=== PATIENT | female | born 1950 | race Asian ===

== ENCOUNTER 2024-06-08 19:43 | Inpatient (IN) | payer OTHER, SELFPAY ==
[2024-06-08] VITALS (8 sets, daily range): BP systolic 95–172; BP diastolic 59–100; BMI 35.3; BMI 34.8
[2024-06-08 15:25] LABS: Glucose - Point of Care 553 mg/dl (70-99)
[2024-06-08 15:49] LABS: % Basophils 0.5 % (0-2); % Immature Granulocytes 0.4 % (0-0.5); % Lymphocytes 24.8 % (20.5-51.1); % Monocytes 6.5 % (1.7-9.3); % Neutrophils 65.8 % (42.2-75.2); Absolute Basophils 0.1 10^3/uL (0-0.2); Absolute Eosinophils 0.2 10^3/uL (0-0.7); Absolute Lymphocytes 2.3 10^3/uL (1.2-3.4); Absolute Monocytes 0.6 10^3/uL (0.1-0.6); Absolute Neutrophils 6.1 10^3/uL (1.4-6.5); Hemoglobin 10.2 g/dL (12.0-16.0); Mean Corpuscular Hgb 28.3 pg (27.0-31.0); Mean Corpuscular Volume 83.1 fL (81.0-99.0); Mean Platelet Volume 9.8 fL (7.4-10.4); Nucleated Red Blood Cells % 0 %; Platelet Count 318 10^3/uL (130-400); Red Blood Cell Count 3.61 10^6/uL (4.20-5.40); Red Cell Dist. Width 12.4 % (11.5-14.5); White Blood Cell Count 9.3 10^3/uL (4.8-10.8)
[2024-06-08 16:06] LABS: ALT (SGPT) 28 U/L (0-35); AST (SGOT) 29 U/L (14-36); Albumin 4.5 g/dl (3.5-5.0); Alkaline Phosphatase 89 U/L (38-126); Blood Urea Nitrogen 37 mg/dl (7-17); Calcium 9.7 mg/dl (8.4-10.2); Carbon Dioxide 28 mmol/L (22-30); Chloride 96 mmol/L (98-107); Estimated Creatinine Clearance 29 ml/min; Glucose 612 mg/dl (70-99); INR 1.01; PT 13.6 Sec (11.4-14.6); Potassium 4.4 mmol/L (3.5-5.1); Sodium 137 mmol/L (135-145); Total Bilirubin 0.4 mg/dl (0.2-1.3); Total Protein 7.1 g/dl (6.3-8.2); eGFR 33.42
[2024-06-08] MEDS: ATIVAN 1 MG IV (16:06)
[2024-06-08 16:07] LABS: APTT 32.8 Sec (23.4-35.0)
--- NOTE | 2024-06-08 16:10 | PTCARENOTE ---
RN in room with pt and family. Pts right arm and right eye start twitching. Pts family state this is what happens to her. Pt then looks at RN. Pt unable to communicate during episode. Episode lasted about 30 seconds. Ativan 1mg IV given. See
MAR. Dr. Lazaro Bradshaw made aware and in room to assess pt. Will continue to monitor.
[2024-06-08 16:14] LABS: Troponin I < 0.012 ng/ml
[2024-06-08] MEDS: NSS 500 IV ×2 (16:16→19:11)
[2024-06-08] MEDS: NOVOLIN R 8 UNITS IV (16:17)
[2024-06-08 16:35] LABS: B-Hydroxybutyrate 0.18 mmol/L (0.02-0.27)
[2024-06-08] MEDS: NOVOLIN R INSULIN INFUSION 100 IV (16:39)
[2024-06-08 18:04] LABS: Glucose - Point of Care 469 mg/dl (70-99)
--- NOTE | 2024-06-08 18:11 | ED.GENMED ---
History of Present Illness
General
Chief Complaint: Seizure
Source: patient
Exam Limitations: none
Time Seen by Provider: 06/08/24 15:51
Nursing documentation reviewed up to this point in time: agreed with
History of Present Illness
History of Present Illness:
Patient with history insulin-dependent diabetes, presents to ED secondary to multiple episodes of involuntary facial and right upper arm twitching at home, without loss of consciousness. Each episode lasted few minutes at a time. Of note, patient
had 1 similar episode approxi-10 days ago. Since then, patient has not had any similar symptoms until today. Patient denies headache. Denies dizziness. Denies difficulty with speech. Denies difficulty with ambulation. Denies loss of sensation
or weakness. Denies previous history of similar symptoms. Denies recent change in medications or diet. However, patient does state that her blood sugar has been high at home.
Review of Systems
Review of Systems
Allergies reviewed?: Yes
All Other Systems: ROS reviewed and negative except as documented in HPI and ROS
Constitutional: Reports no symptoms; Denies fever
Respiratory: Reports no symptoms
Cardiac: Reports no symptoms
ABD/GI: Reports no symptoms; Denies vomiting
Musculoskeletal: Reports no symptoms
Skin: Reports no symptoms
Neurological: Reports other (involuntary twitching)
Phy Exam
Physical Exam
Physical Exam:
Physical Exam
General: mild distress, not acutely ill. afebrile
Head: nc/at. eomi
Neck: supple. normal range of motion.
Heart: s1/s2 regular rate and rhythm
Lungs: no acute respiratory distress. clear bilaterally
Abdomen: normal bowel sounds. not tender.
Neuro: alert and oriented x 3. no focal neurological deficits. normal speech
Skin: no rash
Psychiatric: well kept. interactive and cooperative
Extremities: no edema. no calf tenderness.
Course
Orders/Labs/Results
Orders:
Orders
06/08/24 Lunch
NPO
Allow oral meds: Yes
Allow clear liquids: No
06/08/24 15:19
Electrocardiogram (*1) Urgent
Reason for Study: TIA/Stroke
EKG- Treatment ONCE
06/08/24 15:37
B-Hydroxybutyrate Urgent
Complete Blood Count/With Diff Urgent
Comprehensive Metabolic Panel Urgent
Glycohemoglobin (HgbA1c) Urgent
PTT Urgent
Prothrombin Time Urgent
Serum Osmolality Urgent
Comment: ADD ON
Troponin I Urgent
06/08/24 15:48
Lorazepam [Ativan] 2 mg .ROUTE .STK-MED ONE
06/08/24 16:05
Lorazepam [Ativan] 1 mg IV NOW STA
06/08/24 16:09
Add On- LAB Urgent
Tests Added?: Beta-hydroxybutyrate, hemoglobin A1c
0.9% Sodium Chloride 500 ml [Nss] 500 ml IV BOLUS
Insulin Human Regular [Novolin R] 8 units IV NOW STA
Reg Insulin 100 Units/100 ml [Novolin R Insulin Infusion] 100 units in 100 ml IV NOW
06/08/24 16:10
CT Head W/o Iv Contrast Urgent
Comment:
Reason For Exam: right facial numbness w RUE twitching
06/08/24 16:30
Reg Insulin 100 Units/100 ml [Novolin R Insulin Infusion] 100 units in 100 ml IV NOW
06/08/24 17:46
Levetiracetam Injectable [Keppra] 1,000 mg IV NOW STA
06/08/24 18:12
Glucose Stat
Venous Blood Gas Urgent
%Oxygen/Room Air: 98
06/08/24 18:46
Add On- LAB Routine
Tests Added?: serum osmolality
06/08/24 18:50
0.9% Sodium Chloride 1000 ml [Nss] 1,000 ml IV BOLUS
06/08/24 19:03
0.9% Sodium Chloride 500 ml [Nss] 500 ml IV BOLUS
06/08/24 19:11
Admit/Transfer Patient As Directed
Co-Sign Provider:
Level of Care: Inpatient admission
Assign to:: IMU- Intermediate Care
Physician / Group: Merced Hyde
Diagnosis: Hyperosmolar Hyperglycemic state
Reason for Hospitalization: Hyperosmolar Hyperglycemic state
Expected length of stay greater than two midnights?: Yes
ELOS- Estimated Length of Stay in days: 3
I certify the patient meets the requirements for IP care: Yes
PRN Pain Medication Management As Directed
May give lesser potent ordered pain med per pt: Yes
preference::
Protocol:: Medication orders for pain may be administered in a
manner that supports deferring to patient preference
when the pt is:
- Requesting an ordered lesser potent pain medication.
Least to most potent pain medications are defined
as: acetaminophen < NSAID < tramadol < opioids
(morphine, oxycodone, hydromorphone).
- Requesting a lesser dose of the same medication IF
ORDERED.
- Requesting a less intrusive route of administration
if both routes are prescribed by the provider (PO <
IV).
06/08/24 19:14
Code Status As Directed
Resuscitation Status: Full Code
06/08/24 19:48
BMP [Basic Metabolic Panel] Urgent
06/08/24 20:19
Heparin 5,000 units SC Q12
KCl 20 Meq/0.9%Sodchl 1000 ml [NSS with KCL 20 MEQ] 20 meq in 1,000 ml IV 100 mls/hr
Reg Insulin 100 Units/100 ml [Novolin R Insulin Infusion] 100 units in 100 ml IV PER PROTOCOL
Currently infusing. Continue current dose and titrate:: Yes
06/08/24 20:19
Diabetes Education Consult Routine
Reason for Consult: Monitor Instruction
Newly Diagnosed?: No
Diabetes Management by Nurse Practitioner Routine
Consulting Provider: Florinda Pabon
Was provider already notified?: Yes
Activity As Directed
Activity Level: As Tolerated
Bedside Glucose Monitoring As Directed
Frequency: Q1H
Intake/ Output As Directed
Frequency: Per unit guidelines
Notify MD As Directed
Notify physician if: Nurse to contact provider when glucose reaches 250 to obtain orders for D5 0.[address] Non Medication Order As Directed
Physician Order: goal decrease on glucose 90-120 per hour
Above order entered?: Yes
Nursing to Place Non Medication Order As Directed
Physician Order: please TT me (pre-MN) then overnight PROGRAM/MUSIC DIRECTOR BMP results
Above order entered?: Yes
Vital Signs As Directed
Frequency: Per unit guidelines
Weight As Directed
Frequency: Daily
DX Deep Vein Thrombosis Video Routine
06/09/24 04:19
Complete Blood Count/No Diff IN AM
06/09/24 06:00
Echo 2D MMode Color/Doppler IN AM
Reason for Study: heart failure, unknown EF
06/09/24 08:00
Levetiracetam [Keppra] 500 mg PO BID
Abnormal Lab Results
06/08/24 06/08/24 06/08/24
15:23 15:37 18:02
RBC 3.61 L 10^6/uL
(4.20-5.40)
Hgb 10.2 L g/dL
(12.0-16.0)
Hct 30.0 L %
(37.0-47.0)
VBG pCO2
VBG HCO3
Chloride 96 L mmol/L
(98-107)
BUN 37 H mg/dl
(7-17)
Creatinine 1.6 H mg/dL
(0.6-1.0)
Glucose 612 H* mg/dl
(70-99)
Hemoglobin A1c 10.5 H %
(4.0-5.6)
Serum Osmolality 322 H mOsm/kg
(275-300)
POC Glucose 553 H* mg/dl 469 H* mg/dl
(70-99) (70-99)
06/08/24
18:12
RBC
Hgb
Hct
VBG pCO2 55 H mmHg
(35-48)
VBG HCO3 31.8 H mmol/L
(22-27)
Chloride
BUN
Creatinine
Glucose 465 H* mg/dl
(70-99)
Hemoglobin A1c
Serum Osmolality
POC Glucose
06/08/24 15:37
06/08/24 18:12
Vital Signs
Initial and Last Documented VS:
Initial Vital Signs
Temp Pulse Resp BP Pulse Ox
98.6 F 106 22 172/100 98
06/08/24 15:10 06/08/24 15:10 06/08/24 15:10 06/08/24 15:10 06/08/24 15:10
Last Documented Vital Signs
Temp Pulse Resp BP Pulse Ox
97.5 F 77 23 147/60 96
06/09/24 16:12 06/09/24 18:00 06/09/24 18:00 06/09/24 18:00 06/09/24 18:00
MDM/Problems Addressed
MDM/Problems Addressed:
During observation ED, patient with multiple episodes of involuntary movements, with resolutions spontaneously.
CT head: No acute findings. Blood work remarkable for hyperglycemia without anion gap.
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 However, difficulty with potential structural abnormalities versus seizure. As such, does recommend admit to the hospital
on insulin drip along with Keppra, as well as MRI brain as in-patient.
*Critical Care Note
Total Time (30-74mins, 75-104mins- exclusive of procedures): Not Applicable
ED Attending Note
-
Portions of this chart may have been created with voice recognition software.� Occasional wrong word or��sound alike� substitutions may have occurred due to the inherent limitations of voice recognition software.
Discharge Plan
Departure
Patient Disposition: Admit
Date of Disposition: 06/08/24
Time of Disposition: 18:21
Admit to: Telemetry
Presentation/result/management discussed w/ accepting MD/DO: Hospitalist
Discharge Problem:
Hyperglycemia, INVOLUNTARY TREMOR
Interventions
Interventions:
*Risk Screen - Suicide Last Done: 06/08/24 15:10
*General Assessment Last Done: 06/08/24 15:10
*Neglect/Abuse Screening Last Done: 06/08/24 15:10
*ED- Fall Risk Assessment Last Done: 06/08/24 15:48
*ED COVID-19 Vaccine History Last Done: 06/08/24 15:48
*Nursing Disposition Last Done: 06/08/24 20:13
ED- Cardiac Assessment Last Done: 06/08/24 15:48
ED- Neurological Assessment Last Done: 06/08/24 15:48
ED- Pulmonary Assessment Last Done: 06/08/24 15:48
Discharge Date and Time
Discharge Date/Time: 06/08/24 20:14
[2024-06-08 18:20] LABS: Venous Blood Gas B.E. 5.4 mmol/L (-4 to +4); Venous Blood Gas HCO3 31.8 mmol/L (22-27); Venous Blood Gas O2 Sat % 51.5 %; Venous Blood Gas pCO2 55 mmHg (35-48); Venous Blood Gas pH 7.37 (7.32-7.43); Venous Blood Gas pO2 33 mmHg (30-50)
[2024-06-08] MEDS: KEPPRA 1000 MG IV (18:25)
--- NOTE | 2024-06-08 18:35 | HPS.HSE ---
Family Physician
-
Family Physician: * NONE
Chief Complaint
-
tremors
History of Present Illness
Ms. Irma García is a 74 yo woman with hx IDDM presents to the ER with multiple episodes of involuntary facial and right upper arm twitching. History obtained by grandson translating. First noticed episode 10 days ago where patient had
twitching of right arm and right side of face. This recurred multiple times today and so she was brought to the ER. Blood glucose levels checked at home in 500's. She cannot talk during these episodes but able to nod that she is okay. No prior
history of similar episodes or seizures. She takes Insulin 70/30 twice a day. She states she only checks her sugar once a week and it is usually in the 200's.
Patient lives in [facility] and is here visiting family. She is on a combination pill of aspirin/plavix. She denies recent heart attack or stent. She has history of kidney disease per grandson.
No recent fevers/chills. No cough/congestion. No chest pain. No nausea/vomiting/diarrhea. No LE swelling. She reports urinating normally.
Medical History
Past Medical History
Past Medical History: Reports IDDM
Past Surgical History: Reports None
Social History
Tobacco: Non-smoker
Alcohol: None
Family History
Family History: Not pertinent
Allergies / Home Medications
Allergies reflects when Allergies were last updated in [facility].
Home Medications with original date entered in [employer] [facility]
Allergy/Medication List:
*awaiting med rec
Review of Systems
-
History Source: Patient
A 12 point ROS was completed and negative except as noted: Yes
Physical Exam
Vital Signs
Vital Signs
Temp Pulse Resp BP Pulse Ox
98.6 F 89 18 128/60 100
06/08/24 15:10 06/08/24 18:15 06/08/24 18:15 06/08/24 18:15 06/08/24 18:15
Physical Exam
General: No Apparent Distress
HEENT: PERRLA
Respiratory: Clear; No Wheezes
Cardiac: S1/S2, Regular Rhythm and JVD
GI: Soft and Non Tender
Musculoskeletal: No Edema
Neuro: AO x 3 and Other (SILVIA, EOMI, no current facial asymmetry, 5/5 strength upper and lower extremities )
Psych: Calm
Laboratory Results
-
06/08/24 15:37
Laboratory Results
PT 13.6 Sec (11.4-14.6) 06/08/24 15:37
INR 1.01 06/08/24 15:37
APTT 32.8 Sec (23.4-35.0) 06/08/24 15:37
Total Bilirubin 0.4 mg/dl (0.2-1.3) 06/08/24 15:37
AST 29 U/L (14-36) 06/08/24 15:37
ALT 28 U/L (0-35) 06/08/24 15:37
Alkaline Phosphatase 89 U/L (38-126) 06/08/24 15:37
Troponin I < 0.012 ng/ml 06/08/24 15:37
Data Reviewed
-
Diagnostic Radiology: Report Reviewed by me
Lab Data: Labs Reviewed by me
Impression/Plan
-
Ms. Irma García is a 74 yo woman with hx IDDM presents to the ER with multiple episodes of involuntary facial and right upper arm twitching. She is found to be hyperglycemic to 612; not acidotic.
Triage VS: T 98.6, P 106, RR 22, BP 172/100, SpO2 98%
LABS: WBC 9.3, Hg 10.2, PLT 318, Na 137 (corrected = 145), K+ 4.4, Cl 96, BUN 37, Cr 1.6, Glucose 612 --> 465, liver enzymes WNL, Trop < 0.012
Serum osmolality = 321
B-Hydroxybutyrate 0.[address]
IMPRESSION:
No acute intracranial abnormality noted.
MAR: IV Ativan, IV regular insulin 8 units and initiation of gtt, IV Keppra
Hyperglycemia
IDDM
Hyperosmolar Hyperglycemic State
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
-admit to IMU
-will give additional 500cc now. Patient has JVP on exam and is on Torsemide, need to be careful with fluid resuscitation
-continue IV Insulin gtt with goal decrease on glucose 90-120 per hour
-trend BMP and plasma osmolality with goal drop in POsm 3-8 mOsm/kg per hour
-NS + K20 @ 100 (given concern for hypervolemia)
-NPO
-DM SKILLED NURSING PROFESSIONAL consults
-can transition to subQ insulin when glucose < 250; Posm < 300
HF, Unknown EF
-Patient is on Torsemide 20mg PO QD at home
-will obtain echo here
-monitor volume status closely
KAMLA versus CKD
-monitor closely with fluids
*Awaiting med rec
DVT PPx hep subQ
FULL CODE
Total Critical Care Time 50 minutes. I was immediately available to the patient and staff. I personally examined, reviewed labs, diagnostic images/reports, interpretations, treatment plans, discussed patient care with other providers and family
or caregivers (if patient is unable to make decisions), entered orders as appropriate and documented the medical record.
[2024-06-08 18:37] LABS: Glucose 465 mg/dl (70-99)
[2024-06-08 19:21] LABS: Osmolality Serum 322 mOsm/kg (275-300)
[2024-06-08 20:21] LABS: Blood Urea Nitrogen 34 mg/dl (7-17); Calcium 8.7 mg/dl (8.4-10.2); Carbon Dioxide 30 mmol/L (22-30); Chloride 104 mmol/L (98-107); Estimated Creatinine Clearance 33 ml/min; Glucose 327 mg/dl (70-99); Potassium 3.8 mmol/L (3.5-5.1); Sodium 141 mmol/L (135-145); eGFR 39.23
[2024-06-08 20:32] LABS: Glucose - Point of Care 306 mg/dl (70-99)
[2024-06-08] MEDS: NSS with KCL 20 MEQ 1000 IV (21:11)
[2024-06-08] MEDS: KCL 20 MEQ PO ×2 (21:12→23:27)
[2024-06-08] MEDS: SINGULAIR 10 MG PO (21:12)
[2024-06-08] MEDS: HEPARIN 5000 UNITS SC (21:12)
[2024-06-08] MEDS: PROTONIX 40 MG PO (21:12)
[2024-06-08 21:32] LABS: Glucose - Point of Care 216 mg/dl (70-99)
[2024-06-08] MEDS: D5/0.45%NSS with KCL 20 MEQ 1000 IV (21:48)
[2024-06-08 22:18] LABS: Glucose - Point of Care 184 mg/dl (70-99)
[2024-06-08 22:29] LABS: Osmolality Serum 308 mOsm/kg (275-300)
[2024-06-08 22:34] LABS: Blood Urea Nitrogen 33 mg/dl (7-17); Calcium 9.4 mg/dl (8.4-10.2); Carbon Dioxide 32 mmol/L (22-30); Chloride 103 mmol/L (98-107); Estimated Creatinine Clearance 31 ml/min; Glucose 174 mg/dl (70-99); Potassium 3.6 mmol/L (3.5-5.1); Sodium 143 mmol/L (135-145); eGFR 36.12
--- NOTE | 2024-06-08 22:52 | W.PN.UPDATE ---
Update Note
Progress Note Update
Glucose now < 175; serum osmol remains elevated at 308
with drop in Glucose will stop insulin gtt and transition to subQ. She usually takes 30 units 70/30 in evening; will order 20 units NPH now with aspart 5 pre-meals
F/U ETHNOARCHAEOLOGY PROFESSOR DM recs tomorrow
Patient is sound asleep so will not be eating
continue D5 1/2 NS and stop based on follow up glucose levels (goal is mid 200's)
[2024-06-08] MEDS: HUMULIN N KWIKPEN 20 UNITS SC (23:27)
[2024-06-08 23:44] LABS: Glucose - Point of Care 176 mg/dl (70-99)
[2024-06-09] VITALS (10 sets, daily range): BP systolic 118–150; BP diastolic 54–78; BMI 34.6
--- NOTE | 2024-06-09 02:29 | PTCARENOTE ---
Addendum entered by Sarah Caro RN 06/09/24 02:38:
Accucheck 216 @21:15. Provider notified via tiger text. Orders received for D5 0.45% NaCl with KCl 20meq @100ml/hr. IVF started. Accucheck 184 at 22:10. BMP resulted at 22:35. K 3.6. Provider notified. Insulin gtt dc @ 22:50 per provider order.
Orders received for NPH. Follow up accucheck done@ 23:27, 176. NPH insulin given as soon as insulin pen was tubed up from pharmacy, @23:27. Labs ordered for the am. Orders to continue IVF through the night.
Original Note:
Received pt from ED at 20:10. Insulin gtt initially at 8.2ml/hr. Fingerstick upon arrival 306. Insulin gtt decreased to 5ml/hr per protocol. Pt aaox3, does not speak namibian, grandson in room to assist with translation and admission data. Assessment
done upon arrival, labs drawn as ordered for insulin gtt protocol. Q1 accucheck. Q2 BMP. VSS. Grandson to stay overnight with patient. Care ongoing.
[2024-06-09 04:42] LABS: Hematocrit 30.5 % (37.0-47.0); Hemoglobin 10.1 g/dL (12.0-16.0); Mean Corp Hgb Conc. 33.1 g/dL (33.0-37.0); Mean Corpuscular Hgb 27.7 pg (27.0-31.0); Mean Corpuscular Volume 83.8 fL (81.0-99.0); Mean Platelet Volume 9.6 fL (7.4-10.4); Platelet Count 273 10^3/uL (130-400); Red Blood Cell Count 3.64 10^6/uL (4.20-5.40); Red Cell Dist. Width 12.4 % (11.5-14.5); White Blood Cell Count 9.3 10^3/uL (4.8-10.8)
[2024-06-09 04:54] LABS: Magnesium 2.2 mg/dl (1.6-2.3); Phosphorus 4.5 mg/dl (2.5-4.5)
[2024-06-09 05:00] LABS: Blood Urea Nitrogen 31 mg/dl (7-17); Calcium 9.2 mg/dl (8.4-10.2); Carbon Dioxide 29 mmol/L (22-30); Chloride 106 mmol/L (98-107); Estimated Creatinine Clearance 31 ml/min; Glucose 210 mg/dl (70-99); Potassium 4.6 mmol/L (3.5-5.1); Sodium 144 mmol/L (135-145); eGFR 36.12
--- NOTE | 2024-06-09 05:51 | PTCARENOTE ---
D5 0.45% NaCl stopped per provider order. K 4.6 Glucose 210
[2024-06-09 06:05] LABS: Osmolality Serum 310 mOsm/kg (275-300)
[2024-06-09] MEDS: PLAVIX 75 MG PO (08:29)
[2024-06-09] MEDS: KEPPRA 500 MG PO (08:29)
[2024-06-09] MEDS: SODIUM BICARBONATE 325 MG PO ×2 (08:30→20:35)
[2024-06-09] MEDS: ASPIR LOW (ENTERIC COATED) 81 MG PO (08:30)
[2024-06-09] MEDS: HEPARIN 5000 UNITS SC ×2 (08:30→20:35)
[2024-06-09] MEDS: CRESTOR 10 MG PO (08:30)
[2024-06-09 08:36] LABS: Glucose - Point of Care 172 mg/dl (70-99)
--- NOTE | 2024-06-09 08:45 | PN.DE.MGMTRT ---
Insulin Management
- -
06/09/2024: Diabetes Management Consult
74 year old female who lives in [place] and is here visiting family. PMH: IDDM. Patient presented to the ER with multiple episodes of involuntary facial and right upper arm twitching. First noticed episode 10 days ago where she was twitching of right
arm and right side of face, this recurred multiple times morning of admission. They checked her blood glucose and that it was > 500, so they brought her to the ER.
Pt is awake, alert, oriented, resting in bed, offers no complaints, able to discuss diabetes out patient regimen, family at bedside
Grand dtr at bedside, reports that pt checks her blood sugar once a week and that her average blood sugar is 230-250. She takes insulin twice a day via insulin vial and injection which she self administers around her umbilical area. Upon exam, pt is
noted for lipoatrophy and lipohypertrophy.
She has a vial at bedside that she has been using with insulin. Family at bedside state that pt has been using the same insulin vial for over 2 months and that she was not aware to discard the vial 31 days after opening it. She has always
used the insulin in the vial until it is all used up, NOT when it's 31 days after opening it.
Blood sugar on admission was 612, A1C 10.5%, Cr 1.5, eGFR 36.12
Pt was briefly managed on HHNK Protocol and was transitioned off to SQ insulin-NPH 20 units BID
Her HS blood sugar was 176, FBG was 210 V, 172 POC this AM.
Will increase NPH dose to 30 units BID. Cont moderate corrective insulin with meals.
Pt is only 5 ft, will change diet from 2000 glenda to 1600 glenda.
Diabetes Nurse Educator to see pt today and reinforce education on insulin use and glucose monitoring at home.
Diabetes History
- -
Type of Diabetes: 2 requiring insulin
Pre-Admission Diabetes Regimen
06/08/24 06/08/24 06/08/24
15:37 19:48 21:00
Creatinine 1.6 H 1.4 H Cancelled
06/08/24 06/08/24 06/09/24
22:06 23:00 04:19
Creatinine 1.5 H Cancelled 1.5 H
Insulin Pump Settings
IP Diabetes Regimen
06/08/24 06/08/24 06/08/24
15:23 15:37 18:02
Glucose 612 H*
POC Glucose 553 H* 469 H*
06/08/24 06/08/24 06/08/24
18:12 19:48 20:19
Glucose 465 H* 327 H
POC Glucose 306 H
06/08/24 06/08/24 06/08/24
21:00 21:20 22:06
Glucose Cancelled 174 H
POC Glucose 216 H
06/08/24 06/08/24 06/08/24
22:07 23:00 23:31
Glucose Cancelled
POC Glucose 184 H 176 H
06/09/24 06/09/24
04:19 08:25
Glucose 210 H
POC Glucose 172 H
Patient Education
[2024-06-09] MEDS: NOVOLOG FLEXPEN-LOW RESISTANCE 1 UNITS SC ×2 (09:07→13:31)
[2024-06-09] MEDS: NOVOLOG FLEXPEN 5 UNITS SC ×3 (09:07→17:05)
[2024-06-09] MEDS: HUMULIN N KWIKPEN 20 UNITS SC (09:08)
[2024-06-09 09:40] LABS: Glycohemoglobin (HgbA1c) 10.5 % (4.0-5.6)
--- NOTE | 2024-06-09 13:03 | CON.NEURO ---
Neuro Assessment/Plan
Assessment
simple partial seizures, probably provoked in the setting of hyperglycemia
Head CT, imgs reviewed, chronic left basal ganglia infarct
Plan
brain MRI without contrast
routine EEG
no rx
Consultation
Order
Date of Consultation: 06/09/24
Requesting Provider: Alexis Dodge
Reason for Consult: tremors
Subjective/Objective
Subjective Data
Date of Service: June 09, 2024
from h&p:
Ms. Irma García is a 74 yo woman with hx IDDM presents to the ER with multiple episodes of involuntary facial and right upper arm twitching. History obtained by grandson danielle. First noticed episode 10 days ago where patient had
twitching of right arm and right side of face. This recurred multiple times today and so she was brought to the ER. Blood glucose levels checked at home in 500's. She cannot talk during these episodes but able to nod that she is okay. No prior
history of similar episodes or seizures. She takes Insulin 70/30 twice a day. She states she only checks her sugar once a week and it is usually in the 200's.
Patient lives in [facility] and is here visiting family. She is on a combination pill of aspirin/plavix. She denies recent heart attack or stent. She has history of kidney disease per grandson.
No recent fevers/chills. No cough/congestion. No chest pain. No nausea/vomiting/diarrhea. No LE swelling. She reports urinating normally.
today she reports symptoms are resolved, last episode ~4:30 pm yesterday
Objective Data
Vital Signs
Temp Pulse Resp BP Pulse Ox
36.5 C 68 17 134/63 97
06/09/24 07:27 06/09/24 10:00 06/09/24 10:00 06/09/24 10:00 06/09/24 10:00
Lab Results
06/09/24 04:19
06/09/24 04:19
PT 13.6 Sec (11.4-14.6) 06/08/24 15:37
INR 1.01 06/08/24 15:37
APTT 32.8 Sec (23.4-35.0) 06/08/24 15:37
Sodium 144 mmol/L (135-145) 06/09/24 04:19
Potassium 4.6 mmol/L (3.5-5.1) D 06/09/24 04:19
BUN 31 mg/dl (7-17) H 06/09/24 04:19
Glucose 210 mg/dl (70-99) H 06/09/24 04:19
Calcium 9.2 mg/dl (8.4-10.2) 06/09/24 04:19
Phosphorus 4.5 mg/dl (2.5-4.5) 06/09/24 04:19
Patient Allergies
No Known Allergies Allergy (Unverified 06/08/24 15:10)
Physical Exam
-
awake and alert, speech clear
face symmetric
moving all extremities antigravity
Medications
-
Active Medications
Generic Name Dose Route Start Last Admin
Trade Name Freq PRN Reason Stop Dose Admin
Aspirin 81 mg 06/09/24 08:00 06/09/24 08:30
Aspirin 81 Mg (Enteric Coated) Tablet PO 07/07/24 07:59 81 mg
DAILY KELLY Administration
Clopidogrel Bisulfate 75 mg 06/09/24 08:00 06/09/24 08:29
Clopidogrel 75 Mg Tablet PO 07/07/24 07:59 75 mg
DAILY KELLY Administration
Dextrose 12.5 grams 06/08/24 22:47
Dextrose 50% (0.5 Grams/Ml) 50 Ml Syringe IV 07/06/24 22:46
[id number] PRN
hypoglycemia
Protocol
Glucagon 1 mg 06/08/24 22:47
Glucagon 1 Mg Vial IM 07/06/24 22:46
PRN PRN
hypoglycemia
Protocol
Heparin Sodium 5,000 units 06/08/24 20:19 06/09/24 08:30
Heparin 5,000 Units/Ml 1 Ml Vial SC 07/06/24 20:18 5,000 units
Q12 KELLY Administration
Dextrose/Sodium Chloride 1,000 mls @ 80 mls/hr 06/09/24 06:00 06/09/24 06:20
D5/0.45%Nacl IV Not Given
[id number] KELLY
Insulin Aspart 0 units 06/09/24 07:30 06/09/24 09:07
Insulin Aspart Low Resistance 300 Units/3 Ml Pen.Injctr SC 07/07/24 07:29 1 units
AC KELLY Administration
Protocol
Insulin Aspart 5 units 06/09/24 07:30 06/09/24 09:07
Insulin Aspart (100 Units/Ml) 3 Ml Flexpen SC 07/07/24 07:29 5 units
AC KELLY Administration
Insulin Human NPH 20 units 06/09/24 20:00
Insulin Nph (100 Units/Ml) 3 Ml Kwikpen SC 07/07/24 19:59
Q12 KELLY
Levetiracetam 500 mg 06/09/24 08:00 06/09/24 08:29
Levetiracetam 500 Mg Regular Release Tablet PO 07/07/24 07:59 500 mg
BID KELLY Administration
Montelukast Sodium 10 mg 06/08/24 22:00 06/08/24 21:12
Montelukast Sodium 10 Mg Tablet PO 07/06/24 21:59 10 mg
HS KELLY Administration
Pantoprazole Sodium 40 mg 06/09/24 18:00
Pantoprazole 40 Mg Delayed Release Tablet PO 07/07/24 17:59
QPM KELLY
Rosuvastatin Calcium 10 mg 06/09/24 08:00 06/09/24 08:30
Rosuvastatin (Crestor) 10 Mg Tablet PO 07/07/24 07:59 10 mg
DAILY KELLY Administration
Sodium Bicarbonate 325 mg 06/09/24 08:00 06/09/24 08:30
Sodium Bicarbonate 650 Mg Tablet PO 07/07/24 07:59 325 mg
BID KELLY Administration
Sodium Chloride 0 flush 06/08/24 21:00
Sodium Chloride 0.9% (Flush) Syringe IV 07/06/24 20:59
PER PROTOCOL KELLY
Home Medications
�Medication �Instructions �Recorded
Fozo Red Xt 1 tab PO DAILY Supplement 06/08/24
Mycal Xt 1 tab PO HS 06/08/24
Pantomore Dsr 1 tab PO QPM 06/08/24
acetaminophen 500 mg tablet 500 mg PO DAILYPRN PRN mild pain 06/08/24
aspirin 81 mg tablet,delayed 75 mg PO DAILY Blood Clot 06/08/24
release Prevention/Tx
clopidogrel 75 mg tablet 75 mg PO DAILY Blood Clot 06/08/24
Prevention/Tx
enalapril maleate 20 mg tablet 20 mg PO DAILY Blood Pressure 06/08/24
insulin human U-100 NPH-regulr 30 unit SC QPM Diabetes 06/08/24
70-30 mix 100 unit/mL subcutaneous
susp (Humulin 70/30 U-100 Insulin)
insulin human U-100 NPH-regulr 50 unit SC NOON Diabetes 06/08/24
70-30 mix 100 unit/mL subcutaneous
susp (Humulin 70/30 U-100 Insulin)
levocetirizine 5 mg tablet 5 mg PO HS Allergies 06/08/24
montelukast 10 mg tablet 10 mg PO HS 06/08/24
rosuvastatin 10 mg tablet 10 mg PO DAILY 06/08/24
sodium bicarbonate 650 mg tablet 500 mg PO BID 06/08/24
torsemide 20 mg tablet 20 mg PO BID 06/08/24
--- NOTE | 2024-06-09 13:08 | PTCARENOTE ---
06/09/2024 DIABETES EDUCATION
I met with Ms. García and her granddaughter, she understands some Kazakh and granddaughter assisted with translation.
She takes insulin 70/30 with vial and syringe.
Patient declined meter instruction, states she knows how to check glucose levels. I educated her to check twice a day before meals, and only checking once a week is not sufficient. Educated patient to check with MD on levels if/when to withhold
insulin, educated that < 70 mg/dL is hypoglycemia, signs and symptoms and hypoglycemia protocol.
I inquired if they are aware why her glucose levels were elevated upon admission, she is uncertain. She denied missing doses and states she is drawing up the correct insulin amount: 50 units at noon and 30 units in the PM, educated to check
expiration date of test strips and insulin, I and to take 70/30 insulin 15 minutes before meals. Patient and granddaughter verbalized understanding.
[2024-06-09 13:25] LABS: Glucose - Point of Care 199 mg/dl (70-99)
--- NOTE | 2024-06-09 15:20 | W.PN.HOSP.TC ---
Today's Communication/Plan
-
Monitor for recurrent seizures
Tight blood glucose control adjusting insulin regimen.
Wean off IV fluids while diet and advance.
Additional neurologic workup with MRI of the brain and EEG.
Echocardiogram
Urine for protein
Assessment / Plan
Assessment / Plan
Impression:
Simple partial seizures.
HHNK.
IDDM
Probable CHF of unknown EF.
KAMLA versus CKD, unknown baseline.
Plan:
Presentation with involuntary twitching unilaterally.
Suspect probable simple partial seizures in the settings of HH NK/hyperglycemia induced encephalopathy.
Improved with blood glucose control
Status post Keppra IV in ED
Pending additional workup including MRI of the brain, EEG, possibly provoked by hyperglycemia induced encephalopathy seizure with no clear indication for antiepileptic therapy.
HHNK.
Insulin requiring diabetes.
Hemoglobin A1c 10.5.
HHNK resolved.
Home insulin regimen: Insulin 70/30 50 units a.m.�30 units p.m.
Diet has been advanced to 1800 kcal
Currently on NPH 20 units twice daily and NovoLog 5 AC.
Continue basal bolus with serial Accu-Cheks.
Expected to return to preadmission regimen with Humulin 70/30.
Probable CHF unknown EF
Admission regimen including torsemide 20 mg daily.
Volume status compensated.
Wean off IV fluids once on oral diet.
Echocardiogram pending.
Probable ASCVD.
Hypertension.
Preadmission medications including enalapril rosuvastatin, DAPT with aspirin and Plavix.
Probable CKD.
Unknown baseline
Creatinine 1.5.
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
Monitor creatinine trend
Check urinalysis with protein.
If creatinine remains stable may resume ULISES inhibitor
Anticipated Discharge: 24 - 48 hours
Subjective/Interval History
-
Date of Service: June 09, 2024
Objective Data
-
Labs:
Laboratory Results
06/09/24
04:19
WBC 9.3
Hgb 10.1 L
Hct 30.5 L
Plt Count 273
Sodium 144
Potassium 4.6 D
Chloride 106
Carbon Dioxide 29
BUN 31 H
Creatinine 1.5 H
Glucose 210 H
Calcium 9.2
Vital Signs:
Vital Signs
Temp Pulse Resp BP Pulse Ox
97.5 F 70 14 150/78 96
06/09/24 11:00 06/09/24 14:00 06/09/24 14:00 06/09/24 14:00 06/09/24 14:00
I&O
06/08/24 06/09/24 06/10/24
06:59 06:59 06:59
Intake Total 480 / 480
Balance 480 / 480
Physical Exam
-
General: Well Developed and No Apparent Distress
HEENT: Normocephalic, Atraumatic and Moist Mucous Membranes
Respiratory: Clear to Auscultation
Cardiac: Regular Rhythm and S1/S2; Negative Murmur, Rub or Gallop
GI: Soft, Nontender, Nondistended and Normal Bowel Sounds; Negative Organomegaly
Rectal: Deferred by Provider
Musculoskeletal: No Clubbing, No Cyanosis and No Edema
Skin: Negative Rash
Neuro: Nonfocal/Grossly Intact
--- NOTE | 2024-06-09 16:08 | EEG.RPT ---
Electroencephalogram Report
Recording
Date of EE06/09/24
Type of EEG: Routine
Length of EEG recordin minutes
Done with Video Recording: Yes
Patient Status: Inpatient
Recording Conditions: Awake, Drowsy and Asleep
Hyperventilation Performed: No
Photic Stimulation Performed: Yes
Report
LESS THAN 1 HOUR EEG REPORT
LESS THAN 1 HOUR EEG INTERPRETATION:
Unremarkable EEG for age
CLINICAL CORRELATION:
A normal EEG does not rule out a diagnosis of epilepsy. If clinical suspicion for seizure persists, a prolonged recording may be warranted.
Clinical correlation is advised.
METHODS:
A 21 channel digitized electroencephalogram (EEG) was performed using the 10/20 international system of electrode placement and one-lead of ECG recorded. Video was recorded. Persyst quantitative EEG analysis was performed.
ELECTROENCEPHALOGRAPHER IMPRESSION(S):
Quality of study
Good
Background
There was an unremarkable anterior-posterior voltage gradient of alpha frequency.
With eye opening the background activity changed to a low voltage mixture of frequencies.
There were no significant asymmetries of background activity noted.
Sleep
Drowsiness present
Stage I present
Stage 2 present
Hyperventilation
Produced symmetric amplitude increase and mild slowing appropriate to age
Photic Stimulation
Produced driving symmetrically in most flash frequencies
ECG
Normal sinus rhythm
--- NOTE | 2024-06-09 16:17 | PTCARENOTE ---
Patient AOx3. Patient speaks Dwayne hedis coordinator at bedside. Patient on RA. VSS. NSR with first degree and PAC's on monitor. Patient utilizes bedside commode. Assist x1 when OOB. Patients family at bedside. Call lewis within reach, bed in lowest
position, and bed of wheels locked.
[2024-06-09] MEDS: PROTONIX 40 MG PO (17:05)
[2024-06-09] MEDS: NOVOLOG FLEXPEN-LOW RESISTANCE 2 UNITS SC (17:05)
[2024-06-09 17:08] LABS: Glucose - Point of Care 211 mg/dl (70-99)
--- NOTE | 2024-06-09 17:18 | CM ---
Gujarati speaking patient with Dx Simple partial seizures, HHNK, Probable CHF. EEG today. Room air. Receiving SQ Insulin. Seen by DM Educator. Per nurse assessment; weak, requiring assist for mobility.
Met with patient, son and Sherry, grand-daughter;
per her grand-daughter the patient, who resides in [facility] with her , has been traveling/visiting in and staying with family. She had been residing with family in [facility] for several months and had an MD while there.
The patient is now staying with her grandson Preston in [place] in his 2 story house.
The patient was independent in ADLs and ambulatory with her SPC.
The patient self administers her insulin injections.
DME - SPC, glucometer
Pharmacy - [facility], [place]
Patient may benefit from PT Eval---> message to Dr Dodge.
Plan follow up after seen by PT.
[2024-06-09 18:44] LABS: Urine Albumin Negative (Neg - Trace); Urine Bilirubin Negative (Negative); Urine Character Clear (Clear); Urine Color Yellow; Urine Glucose Negative (Negative); Urine Ketone Negative (Negative); Urine Leukocyte Negative (Negative); Urine Nitrite Negative (Negative); Urine Occult Blood Negative (Negative); Urine Urobilinogen Negative (Neg - 1+)
[2024-06-09] MEDS: SINGULAIR 10 MG PO (20:35)
[2024-06-09] MEDS: HUMULIN N KWIKPEN 30 UNITS SC (20:42)
[2024-06-09 20:54] LABS: Glucose - Point of Care 224 mg/dl (70-99)
[2024-06-10] VITALS (12 sets, daily range): BP systolic 110–165; BP diastolic 58–89; PULSE 79; O2SAT 93; BMI 34.6
--- NOTE | 2024-06-10 00:27 | PTCARENOTE ---
Received pt from azalia RN. Pt bro lam in room to stay overnight. Assessment remains unchanged from previous night. PM medications given, 30units NPH insulin given HS, accucheck 224. Call lewis in reach. VSS. Care ongoing.
[2024-06-10 04:55] LABS: Hematocrit 29.1 % (37.0-47.0); Hemoglobin 9.8 g/dL (12.0-16.0); Mean Corp Hgb Conc. 33.7 g/dL (33.0-37.0); Mean Corpuscular Hgb 27.8 pg (27.0-31.0); Mean Corpuscular Volume 82.7 fL (81.0-99.0); Mean Platelet Volume 9.5 fL (7.4-10.4); Platelet Count 269 10^3/uL (130-400); Red Blood Cell Count 3.52 10^6/uL (4.20-5.40); Red Cell Dist. Width 12.3 % (11.5-14.5); White Blood Cell Count 7.2 10^3/uL (4.8-10.8)
[2024-06-10 05:25] LABS: Blood Urea Nitrogen 25 mg/dl (7-17); Calcium 9.5 mg/dl (8.4-10.2); Carbon Dioxide 27 mmol/L (22-30); Chloride 107 mmol/L (98-107); Estimated Creatinine Clearance 38 ml/min; Glucose 188 mg/dl (70-99); Magnesium 2.3 mg/dl (1.6-2.3); Potassium 4.4 mmol/L (3.5-5.1); Sodium 143 mmol/L (135-145); eGFR 47.21
[2024-06-10 08:33] LABS: Glucose - Point of Care 218 mg/dl (70-99)
[2024-06-10] MEDS: ASPIR LOW (ENTERIC COATED) 81 MG PO (08:49)
[2024-06-10] MEDS: HEPARIN 5000 UNITS SC ×2 (08:49→19:39)
[2024-06-10] MEDS: SODIUM BICARBONATE 325 MG PO ×2 (08:49→19:38)
[2024-06-10] MEDS: PLAVIX 75 MG PO (08:49)
[2024-06-10] MEDS: CRESTOR 10 MG PO (08:49)
[2024-06-10] MEDS: NOVOLOG FLEXPEN SC (08:52)
[2024-06-10] MEDS: HUMULIN N KWIKPEN SC (08:52)
--- NOTE | 2024-06-10 08:53 | PN.DE.MGMTRT ---
Insulin Management
- -
06/10/2024: Diabetes Management Follow up
74 year old female who lives in [place] and is here visiting family. PMH: IDDM. Patient presented to the ER with multiple episodes of involuntary facial and right upper arm twitching. First noticed episode 10 days ago where she was twitching of right
arm and right side of face, this recurred multiple times morning of admission. They checked her blood glucose and that it was > 500, so they brought her to the ER.
Grand dtr at bedside, reports that pt checks her blood sugar once a week and that her average blood sugar is 230-250. She takes insulin twice a day via insulin vial and injection which she self administers around her umbilical area. Upon exam, pt is
noted for lipoatrophy and lipohypertrophy.
She has a vial at bedside that she has been using with insulin. Family at bedside state that pt has been using the same insulin vial for over 2 months and that she was not aware to discard the vial 31 days after opening it. She has always
used the insulin in the vial until it is all used up, NOT when it's 31 days after opening it. Blood sugar on admission was 612, A1C 10.5%, Cr 1.5, eGFR 36.12. Pt was briefly managed on HHNK Protocol and was transitioned off to SQ insulin-NPH 20
units BID
Pt is awake, alert, oriented, sitting up in chair, no complaints, able to discuss diabetes care plan, Grand-dtr Sherry at bedside.
06/09 premeal glucose improved to range of 172 to 211. HS blood sugar was 224, pt received 30 units NPH, FBG 188 V, 218 POC this AM.
Will increase AM NPH dose to 40 units and PM dose to 35 units. Cont moderate corrective insulin with meals. STOP AC NovoLog.
Pt was seen by the Diabetes Nurse Educator, reinforced education on insulin use and glucose monitoring at home.
Diabetes History
- -
Type of Diabetes: 2 requiring insulin
Pre-Admission Diabetes Regimen
06/10/24
04:40
Creatinine 1.2 H
Lab Results
Hemoglobin A1c 10.5 % (4.0-5.6) H 06/08/24 15:37
Insulin Pump Settings
IP Diabetes Regimen
06/09/24 06/09/24 06/09/24
13:14 16:57 20:42
Glucose
POC Glucose 199 H 211 H 224 H
06/10/24 06/10/24
04:40 08:21
Glucose 188 H
POC Glucose 218 H
Patient Education
[2024-06-10] MEDS: NOVOLOG FLEXPEN-LOW RESISTANCE 2 UNITS SC ×2 (09:58→12:35)
[2024-06-10] MEDS: HUMULIN N KWIKPEN 40 UNITS SC (09:58)
--- NOTE | 2024-06-10 10:51 | PTCARENOTE ---
Dr. Dodge made aware that patient had a run of NSVT and then went back into NSR. Patient sitting in chair and just got done working with PT. Patient stated that she 'felt her heart palpitate'. EKG completed. Care ongoing.
--- NOTE | 2024-06-10 11:09 | W.PN.HOSP.TC ---
Today's Communication/Plan
-
Nonsustained VT, symptomatic
Cardiology evaluation.
Adjust insulin regimen.
PT evaluation
Assessment / Plan
Assessment / Plan
Impression:
Simple partial seizures.
HHNK.
IDDM
Probable CHF of unknown EF.
KAMLA versus CKD, unknown baseline.
Plan:
Presentation with involuntary twitching unilaterally.
Suspect probable simple partial seizures in the settings of HH NK/hyperglycemia induced encephalopathy.
Improved with blood glucose control
Status post Keppra IV in ED
Pending additional workup including MRI of the brain, EEG, possibly provoked by hyperglycemia induced encephalopathy seizure with no clear indication for antiepileptic therapy.
HHNK.
Insulin requiring diabetes.
Hemoglobin A1c 10.5.
HHNK resolved.
Home insulin regimen: Insulin 70/30 50 units a.m.�30 units p.m.
Diet has been advanced to 1800 kcal
Insulin regimen being adjusted: NPH 40 units a.m., 35 units p.m.
Continue basal bolus with serial Accu-Cheks.
Expected to return to preadmission regimen with Humulin 70/30.
Probable preserved EF CHF
Admission regimen including torsemide 20 mg daily.
Volume status compensated.
Wean off IV fluids once on oral diet.
Echocardiogram with normal LVEF and 60%. Stage I diastolic dysfunction.
Probable ASCVD.
Hypertension.
Preadmission medications including enalapril rosuvastatin, DAPT with aspirin and Plavix.
Episode of NSVT, asymptomatic. ECG at NSR 72 with no ischemic changes.
Check troponin
Echo 4/7 as above
Currently on DAPT
Consider addition of beta-krista
Cardiology evaluation
Probable CKD.
Unknown baseline
Creatinine 1.5. Improved down to 1.2
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
Monitor creatinine trend
UA with no proteinuria
Resume lisinopril
Anticipated Discharge: 24 - 48 hours
Subjective/Interval History
-
Date of Service: June 10, 2024
Objective Data
-
Labs:
Laboratory Results
06/10/24
04:40
WBC 7.2
Hgb 9.8 L
Hct 29.1 L
Plt Count 269
Sodium 143
Potassium 4.4
Chloride 107
Carbon Dioxide 27
BUN 25 H
Creatinine 1.2 H
Glucose 188 H
Calcium 9.5
Vital Signs:
Vital Signs
Temp Pulse Resp BP Pulse Ox
97.5 F 70 16 155/66 95
06/10/24 07:23 06/10/24 10:00 06/10/24 10:00 06/10/24 10:00 06/10/24 10:00
I&O
06/09/24 06/10/24 06/11/24
06:59 06:59 06:59
Intake Total 960 / 960
Output Total 400 / 400
Balance 560 / 560
Physical Exam
-
General: Well Developed and No Apparent Distress
HEENT: Normocephalic, Atraumatic and Moist Mucous Membranes
Respiratory: Clear to Auscultation
Cardiac: Regular Rhythm and S1/S2; Negative Murmur, Rub or Gallop
GI: Soft, Nontender, Nondistended and Normal Bowel Sounds; Negative Organomegaly
Rectal: Deferred by Provider
Musculoskeletal: No Clubbing, No Cyanosis and No Edema
Skin: Negative Rash
Neuro: Nonfocal/Grossly Intact
[2024-06-10] MEDS: VASOTEC 20 MG PO (12:00)
[2024-06-10 12:44] LABS: Glucose - Point of Care 242 mg/dl (70-99)
--- NOTE | 2024-06-10 14:15 | PTCARENOTE ---
Patient AOx3. Patient speaks Vernonraallie pottery kiln builder at bedside. Patient on RA. NSR with first degree and PAC's on monitor. BP elevated. BP med restarted by cardiology. Patient utilizes bedside commode. Assist x1 when OOB. Patients family at bedside.
Call lewsi within reach, bed in lowest position, and bed of wheels locked.
[2024-06-10] MEDS: PROTONIX 40 MG PO (17:08)
--- NOTE | 2024-06-10 17:12 | CON.CAR ---
Addendum entered and electronically signed by Sussy Schumacher MD 06/10/24 17:52:
I saw and examined the patient.
The SUPERVISOR BUFFING AND PASTING's note was reviewed and I agree with the note.
Comment: She is currently without complaints. No palpitaitons or sense of arrhythmia at the time of the occurance. rrr no m/r/g. CTA bl, no le edema. Will watch lytes, start bb and monitor the rhythm.
Original Note:
Consultation
Consultation Request
Date/Time Consultation Requested: 06/10/2024 11:00
Date/Time Consultation Performed: 06/10/2024 16:30
Requesting Provider: Dr. Dodge
Performing Provider: ELA Ying for Dr. Schumacher
Reason for Consultation: NSVT
Medical History
-
Chief Complaint: Facial twitching
History of Present Illness:
Irma García is a 74-year-old female with insulin-dependent diabetes mellitus, HTN, CKD, dyslipidemia, HFpEF, and seasonal allergies who presented to the emergency department with a chief complaint of facial twitching. The patient partially
resides in [facility] and partially resides in [place]. She is here visiting with family. Prior to arrival, she was having involuntary facial and right upper arm twitching. Initially, this started 10 days prior to arrival and was escalating which
prompted ER evaluation. Her blood glucose had been in the 500s at home. [facility]. She is on a combination pill of aspirin and clopidogrel. She denies prior CVA and cardiac procedures. Cardiology was consulted for NSVT on
telemetry.
The patient does not speak Chadian. A professional translation service was offered but she preferred to use her granddaughter for translation.
Past Medical History
Past Medical History: CHF, HTN, Hypercholesterolemia, IDDM and Renal Failure (CKD)
Social History
Tobacco: Non-Smoker
Alcohol: None
Drug: None
Living: With Family
Employment: Retired
Family History
Family History: Reviewed & Not Pertinent
Allergies / Home Medications
Allergy/AdvReac Type Severity Reaction Status Date / Time
No Known Allergies Allergy Unverified 06/08/24 15:10
�Medication �Instructions �Recorded �Confirmed �Type
Fozo Red Xt 1 tab PO DAILY Supplement 06/08/24 06/08/24 History
Mycal Xt 1 tab PO HS Supplement 06/08/24 06/08/24 History
Pantomore Dsr 1 tab PO QPM Gastrointestinal Issue 06/08/24 06/08/24 History
acetaminophen 500 mg tablet 500 mg PO DAILYPRN PRN mild pain 06/08/24 06/08/24 History
aspirin 81 mg tablet,delayed 75 mg PO DAILY Blood Clot 06/08/24 06/08/24 History
release Prevention/Tx
clopidogrel 75 mg tablet 75 mg PO DAILY Blood Clot 06/08/24 06/08/24 History
Prevention/Tx
enalapril maleate 20 mg tablet 20 mg PO DAILY Blood Pressure 06/08/24 06/08/24 History
insulin human U-100 NPH-regulr 30 unit SC QPM Diabetes 06/08/24 06/08/24 History
70-30 mix 100 unit/mL subcutaneous
susp (Humulin 70/30 U-100 Insulin)
insulin human U-100 NPH-regulr 50 unit SC NOON Diabetes 06/08/24 06/08/24 History
70-30 mix 100 unit/mL subcutaneous
susp (Humulin 70/30 U-100 Insulin)
levocetirizine 5 mg tablet 5 mg PO HS Allergies 06/08/24 06/08/24 History
montelukast 10 mg tablet 10 mg PO HS Lung/Breathing Issues 06/08/24 06/08/24 History
rosuvastatin 10 mg tablet 10 mg PO DAILY High Cholesterol 06/08/24 06/08/24 History
sodium bicarbonate 650 mg tablet 500 mg PO BID Electrolyte Repletion 06/08/24 06/08/24 History
torsemide 20 mg tablet 20 mg PO BID Fluid 06/08/24 06/08/24 History
Retention/Swelling
Review of Systems
-
History Source: Patient
All other systems: Negative unless noted
Respiratory: No Symptoms
Cardiac: No Symptoms
Abdomen/GI: No Symptoms
: No Symptoms
Musculoskeletal: No Symptoms
Physical Exam
Vital Signs
Temp Pulse Resp BP Pulse Ox
97.7 F 63 11 141/65 96
06/10/24 17:04 06/10/24 16:00 06/10/24 16:00 06/10/24 14:00 06/10/24 16:00
Lab Results
06/10/24 04:40
06/10/24 04:40
Troponin I < 0.012 ng/ml 06/08/24 15:37
Physical Exam
General: Well Developed, Well Nourished and No Apparent Distress
HEENT: Normocephalic, Anicteric and Moist Mucous Membranes
Respiratory: Clear and Non Labored Respirations
Cardiac: S1/S2, Regular Rhythm and Peripheral Edema (+1 LE edema)
Breast: Deferred by me
GI: Soft, Non Tender, Non Distended and Normal Bowel Sounds
Rectal: Deferred by Provider
Genito-urinary: No Costovertebral Tender
Musculoskeletal: No Clubbing, No Cyanosis and No Edema
Skin: Warm and Dry
Neuro: AO x 3
Hematologic/Lymphatic: No Lymphadenopathy
Psych: Calm
Impression / Plan
-
I/P: 74F with insulin-dependent diabetes mellitus, HTN, dyslipidemia, HFpEF, and seasonal allergies who presented to the emergency department with a chief complaint of facial twitching. Admitted with [facility], cardio consulted for NSVT.
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
NSVT
- 19 beats on telemetry at 10:32 AM
- Start metoprolol tartrate 25 mg twice daily
- Echocardiogram without any acute findings and normal LVEF yesterday
HFpEF, presumed, chronic
- She does not appear to be acutely volume overloaded
- Continue home dose of torsemide 20 mg twice daily
- Continue daily weight and sodium restricted diet
Facial twitching (chief complaint), resolved
Hypertension, on enalapril
HHNK, HgbA1c 10.5%, per primary service and diabetic team
Dyslipidemia, goal LDL <70, ideally <55, on rosuvastatin
Data Reviewed
-
EKG: Report Reviewed by me
Medical Tests (Nuc Med, Echo etc): Report Reviewed by me (Echocardiogram as above)
Labs: Labs Reviewed by me
[2024-06-10 17:18] LABS: Glucose - Point of Care 177 mg/dl (70-99)
[2024-06-10] MEDS: NOVOLOG FLEXPEN-LOW RESISTANCE 1 UNITS SC (18:05)
[2024-06-10] MEDS: LOPRESSOR 25 MG PO (19:39)
[2024-06-10] MEDS: SINGULAIR 10 MG PO (21:12)
[2024-06-10] MEDS: HUMULIN N KWIKPEN 35 UNITS SC (21:13)
[2024-06-10 21:23] LABS: Glucose - Point of Care 175 mg/dl (70-99)
[2024-06-11] VITALS: BP 136/64
[2024-06-11 02:00] VITALS: BP 125/48
--- NOTE | 2024-06-11 02:38 | PTCARENOTE ---
Pt continues with SR, 1st degree AV block on CM. VSS. Does not offer complaints at this time. Family remains at bedside. Pt communicates with this RN to the best of ability, but language barrier is present. Pt is able to communicate fully with
family who speaks Portuguese, as well as same language as patient. Call lewis within reach. Pt rings appropriately. Care ongoing
[2024-06-11 03:29] VITALS: BMI 34.3
[2024-06-11 04:00] VITALS: BP 145/62
[2024-06-11 06:00] VITALS: BP 109/53
[2024-06-11 06:14] LABS: Blood Urea Nitrogen 20 mg/dl (7-17); Carbon Dioxide 28 mmol/L (22-30); Chloride 108 mmol/L (98-107); Estimated Creatinine Clearance 41 ml/min; Glucose 60 mg/dl (70-99); Potassium 4.3 mmol/L (3.5-5.1); Sodium 143 mmol/L (135-145)
[2024-06-11 06:48] LABS: Glucose - Point of Care 62 mg/dl (70-99)
[2024-06-11 07:26] LABS: Glucose - Point of Care 86 mg/dl (70-99)
[2024-06-11] MEDS: NOVOLOG FLEXPEN-LOW RESISTANCE SC ×2 (07:36→13:09)
--- NOTE | 2024-06-11 08:44 | PTCARENOTE ---
Patient received from production shift supervisor. Patient resting comfortably in bed. AAO, VSS. No events noted overnight, however, blood glucose was 60 just before change of shift and Accucheck was 62. Protocol followed and recheck was 86. No complaints of
pain. Family in the room to help interpret. No further testing noted at this time. Call lewis in reach.
[2024-06-11] MEDS: LOPRESSOR 25 MG PO (09:22)
[2024-06-11] MEDS: CRESTOR 10 MG PO (09:22)
[2024-06-11] MEDS: SODIUM BICARBONATE 325 MG PO (09:22)
[2024-06-11] MEDS: HEPARIN 5000 UNITS SC (09:22)
[2024-06-11] MEDS: PLAVIX 75 MG PO (09:22)
[2024-06-11] MEDS: ASPIR LOW (ENTERIC COATED) 81 MG PO (09:22)
[2024-06-11] MEDS: HUMULIN N KWIKPEN 40 UNITS SC (09:23)
[2024-06-11] MEDS: VASOTEC 20 MG PO (09:31)
[2024-06-11 09:38] LABS: Glucose - Point of Care 101 mg/dl (70-99)
--- NOTE | 2024-06-11 10:20 | PN.DE.MGMTRT ---
Insulin Management
- -
06/11/2024: Diabetes Management Follow up
74 year old female who lives in [place] and is here visiting family. PMH: IDDM. Patient presented to the ER with multiple episodes of involuntary facial and right upper arm twitching. First noticed episode 10 days ago where she was twitching of right
arm and right side of face, this recurred multiple times morning of admission. They checked her blood glucose and that it was > 500, so they brought her to the ER.
Grand dtr at bedside, reports that pt checks her blood sugar once a week and that her average blood sugar is 230-250. She takes insulin twice a day via insulin vial and injection which she self administers around her umbilical area. Upon exam, pt is
noted for lipoatrophy and lipohypertrophy.
She has a vial at bedside that she has been using with insulin. Family at bedside state that pt has been using the same insulin vial for over 2 months and that she was not aware to discard the vial 31 days after opening it. She has always
used the insulin in the vial until it is all used up, NOT when it's 31 days after opening it. Blood sugar on admission was 612, A1C 10.5%, Cr 1.5, eGFR 36.12. Pt was briefly managed on HHNK Protocol and was transitioned off to SQ insulin-NPH 20
units BID
Pt is awake, alert, oriented, sitting up in chair, no complaints, able to discuss diabetes care plan, Grand-dtr son at bedside.
Noted for an episode of hypoglycemia as low as 60 V this AM. Pt received 35 units of NPH @ HS, will reduce NPH PM dose to 30 units.
06/10 premeal glucose range 177 to 242, will continue 40 units NPH in AM. Cont moderate corrective insulin with meals. STOP AC NovoLog.
Meds at discharge: NPH 40 units in AM and 30 units in PM
Diabetes plan of care post discharge has been discussed at length with pt and grandson at bedside. Emphasized importance pf glucose monitoring and labeling insulin vial so she can discard vial after 30 days. All questions have been answered.
Pt was seen by the Diabetes Nurse Educator, reinforced education on insulin use and glucose monitoring at home.
Diabetes History
- -
Type of Diabetes: 2 requiring insulin
Pre-Admission Diabetes Regimen
06/11/24
05:36
Creatinine 1.1 H
Lab Results
Hemoglobin A1c 10.5 % (4.0-5.6) H 06/08/24 15:37
Insulin Pump Settings
IP Diabetes Regimen
06/10/24 06/10/24 06/10/24
12:33 17:07 21:12
Glucose
POC Glucose 242 H 177 H 175 H
06/11/24 06/11/24 06/11/24
05:36 06:37 07:13
Glucose 60 L
POC Glucose 62 L 86
06/11/24
09:26
Glucose
POC Glucose 101 H
Meal type: Dinner
Amount consumed: 90%
Patient Education
--- NOTE | 2024-06-11 10:51 | W.DS.TRANS ---
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
-
Discharge Instructions:
Discharge Diagnosis/Procedures Simple partial seizures.
HHNK.
IDDM
Diet Diabetic, Carb Controlled
Instructions:
Stand-Alone Forms:
Changes to Home Medications: No
Discharge Medications:
DC Medications w/original date entered in [employer]
Pantomore Dsr 1 tab PO QPM Gastrointestinal Issue 06/08/24
acetaminophen 500 mg tablet 500 mg PO DAILYPRN PRN mild pain 06/08/24
aspirin 81 mg tablet,delayed release 75 mg PO DAILY Blood Clot Prevention/Tx 06/08/24
clopidogrel 75 mg tablet 75 mg PO DAILY Blood Clot Prevention/Tx 06/08/24
enalapril maleate 20 mg tablet 20 mg PO DAILY Blood Pressure 06/08/24
insulin human U-100 NPH-regulr 70-30 mix 100 unit/mL subcutaneous susp (Humulin 70/30 U-100 Insulin) 30 unit SC QPM Diabetes 06/08/24
insulin human U-100 NPH-regulr 70-30 mix 100 unit/mL subcutaneous susp (Humulin 70/30 U-100 Insulin) 50 unit SC NOON Diabetes 06/08/24
levocetirizine 5 mg tablet 5 mg PO HS Allergies 06/08/24
montelukast 10 mg tablet 10 mg PO HS Lung/Breathing Issues 06/08/24
rosuvastatin 10 mg tablet 10 mg PO DAILY High Cholesterol 06/08/24
sodium bicarbonate 650 mg tablet 500 mg PO BID Electrolyte Repletion 06/08/24
torsemide 20 mg tablet 20 mg PO BID Fluid Retention/Swelling 06/08/24
Home Medication Changes
Pending Results: No
--- NOTE | 2024-06-11 11:49 | CM ---
Gujarati speaking patient with Dx Simple partial seizures, HHNK. PT Eval; supervision for transfers and ambulation, home PT v no needs.
Met with patient and grandson Petros;
both agree to d/c today to her grandson Preston's house in [place].
Petros was aware that patient did well working with PT yesterday.
He will provide transport home.
No CM d/c needs identified.
Plan home to grandson's house.
[2024-06-11 11:50] LABS: Glucose - Point of Care 114 mg/dl (70-99)
--- NOTE | 2024-06-11 12:35 | W.PN.CD ---
Today's Communication / Plan
-
Stop metoprolol
Cardiology will sign off
Impression / Plan
-
I/P: 74F with insulin-dependent diabetes mellitus, HTN, dyslipidemia, HFpEF, and seasonal allergies who presented to the emergency department with a chief complaint of facial twitching. Admitted with [facility], cardio consulted for NSVT.
Outpatient care program resident: Resides in [facility]
Telemetry with abnormality
- ARTIFACT => not VT, confidence of artifact is more than 99%
- Stop metoprolol
- Echo with normal LVEF
Hx of HFpEF, chronic
Facial twitching (chief complaint), resolved
Hypertension, on enalapril
HHNK, HgbA1c 10.5%, per primary service and diabetic team
Dyslipidemia, goal LDL <70, ideally <55, on rosuvastatin
Subjective: No hx of syncope.
Physical Exam
Vital Signs/Labs
Vital Signs
Temp Pulse Resp BP Pulse Ox
97.7 F 69 12 138/75 97
06/11/24 11:15 06/11/24 09:22 06/11/24 06:00 06/11/24 09:22 06/11/24 11:12
06/10/24 06/11/24 06/12/24
06:59 06:59 06:59
Actual Weight 80.4 kg 79.7 kg
06/10/24 04:40
06/11/24 05:36
PT 13.6 Sec (11.4-14.6) 06/08/24 15:37
INR 1.01 06/08/24 15:37
APTT 32.8 Sec (23.4-35.0) 06/08/24 15:37
Magnesium 2.3 mg/dl (1.6-2.3) 06/10/24 04:40
LAB Results
06/08/24
15:37
Troponin I < 0.012
Physical Exam
Constitutional: No acute distress
Cardiovascular: Pedal edema is absent
Respiratory: Respiratory effort normal and Lungs clear to auscul.
GI: Soft and Distention absent
Neuro/Psych: Alert
Data Reviewed
-
Date of Service: June 11, 2024
--- NOTE | 2024-06-11 14:07 | PTCARENOTE ---
Patient discharged to home. Discharge instructions reviewed with grandson and all questions answered. Patient taken down via wheelchair and left with all known belongings.
== END 2024-06-11 13:52 | disposition home or self-care (01) | DRG 638 ==
LOC: IMU 19:43
PROVIDERS: Nurse Practitioner Family; Nurse Practitioner Gerontology; ADMITTING PHYSICIAN Student in an Organized Health Care Education/Training Program; ATTENDING PHYSICIAN Internal Medicine; CONSULT PHYSICIAN Internal Medicine Cardiovascular Disease; EMERGENCY PHYSICIAN Emergency Medicine; OTHER PHYSICIAN Psychiatry & Neurology Clinical Neurophysiology
DX: E11.00 Type 2 diabetes mellitus with hyperosmolarity without nonketotic hyperglycemic-hyperosmolar coma (NKHHC) (principal); E87.22 Chronic metabolic acidosis; I13.0 Hypertensive heart and chronic kidney disease with heart failure and stage 1 through stage 4 chronic kidney disease, or unspecified chronic kidney disease; N17.9 Acute kidney failure, unspecified; I50.32 Chronic diastolic (congestive) heart failure; I47.20 Ventricular tachycardia, unspecified; R56.9 Unspecified convulsions; N18.9 Chronic kidney disease, unspecified; E11.22 Type 2 diabetes mellitus with diabetic chronic kidney disease; E78.00 Pure hypercholesterolemia, unspecified; Z79.82 Long term (current) use of aspirin; Z79.4 Long term (current) use of insulin; Z79.899 Other long term (current) drug therapy; Z79.02 Long term (current) use of antithrombotics/antiplatelets; Z86.73 Personal history of transient ischemic attack (TIA), and cerebral infarction without residual deficits; E86.0 Dehydration; I25.10 Atherosclerotic heart disease of native coronary artery without angina pectoris
CPT/HCPCS: 70450; 80048; 80053; 81003; 82010; 82805; 82947; 82962; 83036; 83735; 83930; 84100; 84484; 85025; 85027; 85610; 85730; 93005; 93306; 95816; 96374; 97162; 99285